=== PATIENT | male | born 1975 | race Two or more races ===

== ENCOUNTER 2017-06-26 17:43 | Inpatient (IN) | payer MEDICAID, OTHER ==
[~2017-06-26] VITALS: Ht 180.3 cm; Wt 71.3 kg
[2017-06-26] MEDS ORDERED: MEPERIDINE HCL (50 MG/ML) 1 ML VIAL IM ONE (21:30)
[2017-06-26] MEDS ORDERED: cefTRIAXone SOD 1,000 MG VL IM ONE (21:30)
[2017-06-26] MEDS ORDERED: ONDANSETRON HCL 4 MG/2 ML VIAL IM ONE (21:30)
[2017-06-26 22:16] LABS: Basophils # (auto) 0.1 uL; Basophils % (auto) 0.4 % (0.0-2.0); Eosinophils # (auto) 0 uL; Eosinophils % (auto) 0.2 % (0.0-7.0); Hematocrit 41.4 % (41.0-53.0); Hemoglobin 14.2 g/dL (13.5-17.5); Lymphocytes # (auto) 1.7 uL; Lymphocytes % (auto) 10.5 % (10.0-50.0); Mean Corpuscular Hemoglobin 31.3 pg (28.0-32.0); Mean Corpuscular Hgb Conc. 34.4 g/dL (32.0-36.0); Mean Corpuscular Volume 91.1 fL (80.0-100.0); Monocytes # (auto) 1.8 uL; Monocytes % (auto) 10.9 % (0.0-12.0); Neutrophils # (auto) 12.5 uL; Platelet Count (auto) 305 10^3/uL (140-450); Red Blood Cells 4.54 10^6/uL (4.5-5.90); Red Cell Distribution Width 13.5 % (11.8-14.3)
[2017-06-26] MEDS ORDERED: cefTRIAXone 1GM/10ml IVPUSH 10 ML IV ONE (22:26)
[2017-06-26 22:34] LABS: Albumin 2.9 g/dL (3.4-5.0); Bilirubin, Total 0.3 mg/dL (0.2-1.0); Potassium 3.9 mmol/L (3.5-5.1); Total Protein 8.1 g/dL (6.4-8.2)
[2017-06-27] MEDS ORDERED: TEMAZEPAM 15 MG CAP PO PRN (03:15)
[2017-06-27] MEDS ORDERED: VANCOMYCIN PER PHARMACY 0 MG IV SCH (03:15)
[2017-06-27] MEDS ORDERED: ACETAMINOPHEN 325 MG TAB PO PRN (03:15)
[2017-06-27] MEDS ORDERED: ONDANSETRON HCL 4 MG/2 ML VIAL IV PRN (03:15)
[2017-06-27] MEDS ORDERED: MORPHINE SULFATE 4 MG/ML SYR/VIAL IV PRN (03:15)
[2017-06-27] MEDS: HYDROcodone-ACET 5/325MG TAB PO PRN ×3 (04:34→14:08)
[2017-06-27 06:23] LABS: Urine Bacteria NONE SEEN /hpf (None Seen); Urine Blood Negative /uL (Negative); Urine Mucus FEW (None Seen); Urine Specific Gravity 1.029 (1.001-1.035); Urine WBC 2 /hpf (0 - 3)
[2017-06-27 06:43] LABS: Alcohol, Urine < 3.0 mg/dL (0-5); Amphetamine Screen, Urine NEGATIVE (NEGATIVE); Barbiturate Scree,Urine NEGATIVE (NEGATIVE); Benzodiazephine Screen, Urine NEGATIVE (NEGATIVE); Cannabinoid Screen, Urine NEGATIVE (NEGATIVE); Cocaine Screen, Urine NEGATIVE (NEGATIVE); Opiate Scree,Urine POSITIVE (NEGATIVE); Phencyclidine Screen, Urine NEGATIVE (NEGATIVE)
[2017-06-27] MEDS ORDERED: VANCOMYCIN 1GM/250ML 250 ML IV SCH (09:00)
[2017-06-27] MEDS: cefTRIAXone 1GM/10ml IVPUSH 10 ML IV SCH (09:12)
[2017-06-27 09:37] LABS: INR 1.05 (0.9-1.15); Partial Thromboplastin Time 29.2 sec (22.64-33.71); Prothrombin Time 11.5 sec (9.37-12.3)
[2017-06-27] MEDS: FAMOTIDINE 20 MG TAB PO SCH ×2 (09:46→22:04)
[2017-06-27] MEDS: ENOXAPARIN SOD 40 MG/0.4 ML SYRINGE SC SCH ×2 (09:46→12:02)
[2017-06-27] MEDS: KETOROLAC TROMETH 30 MG/ML 1ML VIAL IV PRN (11:57)
[2017-06-27 15:15] VITALS: BP 98/62
[2017-06-27] MEDS: CLINDAMYCIN 600MG IV 50 ML IV SCH ×2 (15:52→23:31)
[2017-06-27] MEDS: MORPHINE SULFATE 8mg/ml INJ SDV IV PRN ×2 (16:52→22:04)
[2017-06-27 16:54] VITALS: BP 98/62
[2017-06-27 22:00] VITALS: BP 112/65
[2017-06-28] MEDS: KETOROLAC TROMETH 30 MG/ML 1ML VIAL IV PRN (02:49)
[2017-06-28] MEDS: MORPHINE SULFATE 8mg/ml INJ SDV IV PRN ×4 (04:50→21:24)
[2017-06-28 05:00] VITALS: BP 108/68
[2017-06-28] MEDS: CLINDAMYCIN 600MG IV 50 ML IV SCH ×3 (07:37→23:44)
[2017-06-28 08:00] VITALS: BP 101/56
[2017-06-28 08:40] VITALS: BP 101/56
[2017-06-28 09:17] LABS: Basophils # (auto) 0 uL; Basophils % (auto) 0.5 % (0.0-2.0); Eosinophils # (auto) 0.1 uL; Hematocrit 43.1 % (41.0-53.0); Hemoglobin 14.5 g/dL (13.5-17.5); Lymphocytes # (auto) 2.1 uL; Lymphocytes % (auto) 21.4 % (10.0-50.0); Mean Corpuscular Hgb Conc. 33.6 g/dL (32.0-36.0); Mean Corpuscular Volume 92.4 fL (80.0-100.0); Monocytes # (auto) 0.9 uL; Monocytes % (auto) 9.5 % (0.0-12.0); Neutrophils # (auto) 6.6 uL; Neutrophils % (auto) 67.6 % (37.0-80.0); Platelet Count (auto) 329 10^3/uL (140-450); Red Blood Cells 4.66 10^6/uL (4.5-5.90); Red Cell Distribution Width 13.3 % (11.8-14.3); White Blood Cell 9.8 10^3/uL (4.4-10.8)
[2017-06-28 09:20] LABS: Albumin 2.4 g/dL (3.4-5.0); Calcium 8.7 mg/dL (8.5-10.1); Potassium 3.9 mmol/L (3.5-5.1)
[2017-06-28 09:30] LABS: BUN/Creatinine Ratio 19.7; Bilirubin, Total 0.2 mg/dL (0.2-1.0)
[2017-06-28] MEDS: ENOXAPARIN SOD 40 MG/0.4 ML SYRINGE SC SCH (10:53)
[2017-06-28] MEDS: cefTRIAXone 1GM/10ml IVPUSH 10 ML IV SCH (10:53)
[2017-06-28] MEDS: FAMOTIDINE 20 MG TAB PO SCH ×2 (10:53→21:24)
[2017-06-28 13:02] VITALS: BP 104/64
[2017-06-28 17:13] VITALS: BP 102/64
[2017-06-28] MEDS: HYDROcodone-ACET 5/325MG TAB PO PRN (18:36)
[2017-06-28 21:35] VITALS: BP 109/64
[2017-06-29] MEDS: MORPHINE SULFATE 8mg/ml INJ SDV IV PRN ×2 (03:16→07:26)
[2017-06-29 05:06] VITALS: BP 122/80
[2017-06-29 05:50] LABS: Basophils # (auto) 0 uL; Basophils % (auto) 0.3 % (0.0-2.0); Eosinophils # (auto) 0.1 uL; Eosinophils % (auto) 2.2 % (0.0-7.0); Hematocrit 37.6 % (41.0-53.0); Lymphocytes # (auto) 1.8 uL; Lymphocytes % (auto) 30.4 % (10.0-50.0); Mean Corpuscular Hemoglobin 31.3 pg (28.0-32.0); Mean Corpuscular Hgb Conc. 34.5 g/dL (32.0-36.0); Mean Corpuscular Volume 90.7 fL (80.0-100.0); Monocytes # (auto) 0.5 uL; Monocytes % (auto) 7.8 % (0.0-12.0); Neutrophils # (auto) 3.6 uL; Neutrophils % (auto) 59.3 % (37.0-80.0); Nucleated Red Blood Cells % 0.2 %; Platelet Count (auto) 361 10^3/uL (140-450); Red Blood Cells 4.14 10^6/uL (4.5-5.90); Red Cell Distribution Width 13.3 % (11.8-14.3); White Blood Cell 6.1 10^3/uL (4.4-10.8)
[2017-06-29 06:00] LABS: BUN/Creatinine Ratio 20.7; Calcium 8.4 mg/dL (8.5-10.1); Potassium 3.9 mmol/L (3.5-5.1)
[2017-06-29] MEDS: CLINDAMYCIN 600MG IV 50 ML IV SCH (07:26)
[2017-06-29] MEDS: cefTRIAXone 1GM/10ml IVPUSH 10 ML IV SCH (08:45)
[2017-06-29 08:52] VITALS: BP 118/80
[2017-06-29] MEDS: FAMOTIDINE 20 MG TAB PO SCH (10:00)
[2017-06-29] MEDS: ENOXAPARIN SOD 40 MG/0.4 ML SYRINGE SC SCH (10:00)
[2017-06-29 10:06] VITALS: BP 118/80
[2017-06-29] MEDS: HYDROcodone-ACET 5/325MG TAB PO PRN (11:25)
== END 2017-06-29 12:15 | disposition home or self-care (01) | DRG 720 ==
LOC: ER 18:02 → OVERFLOW 18:03 → CENTRAL 06-27 15:24
PROVIDERS: ADMIT Nurse Practitioner; ATTEND Internal Medicine
DX: A41.9 Sepsis, unspecified organism (principal); E88.09 Other disorders of plasma-protein metabolism, not elsewhere classified; L02.31 Cutaneous abscess of buttock; G47.00 Insomnia, unspecified; L03.317 Cellulitis of buttock; K21.9 Gastro-esophageal reflux disease without esophagitis; Z72.0 Tobacco use
CPT/HCPCS: 36415; 72192; 80048; 80053; 80307; 81001; 83615; 85025; 85610; 85730; 87040; 87205; 96372; 96374; J1885; J2270; J2405; J3490

== ENCOUNTER 2019-07-05 15:53 | Emergency (ER) | payer MEDICAID ==
[~2019-07-05] VITALS: Ht 180.3 cm; Wt 77.1 kg
[2019-07-05] MEDS ORDERED: cefTRIAXone W LIDOCAINE 1 GM IM IM ONE (16:45)
[2019-07-05] MEDS ORDERED: CLINDAMYCIN 600 MG/4 ML VL IM ONE (16:45)
[2019-07-05 17:04] VITALS: BP 106/70
[2019-07-05] MEDS ORDERED: CLINDAMYCIN HCL 150 MG CAP PO ONE (17:15)
== END 2019-07-05 18:00 | disposition home or self-care (01) ==
LOC: ER 15:54
DX: L03.116 Cellulitis of left lower limb (principal)
CPT/HCPCS: 73590; 96372; 99283; J0696

== ENCOUNTER 2019-07-07 22:48 | Inpatient (IN) | payer MEDICAID ==
[~2019-07-07] VITALS: Ht 180.3 cm; Wt 76.6 kg
[2019-07-08 00:08] LABS: Basophils # (auto) 0 10 ^3/uL (0-0.2); Basophils % (auto) 0.6 % (0.0-2.0); Eosinophils # (auto) 0.1 10 ^3/uL (0-0.8); Eosinophils % (auto) 1.1 % (0.0-7.0); Hematocrit 42.9 % (41.0-53.0); Hemoglobin 14.7 g/dL (13.5-17.5); Lymphocytes # (auto) 1.3 10 ^3/uL (0.4-5.4); Lymphocytes % (auto) 25.7 % (10.0-50.0); Mean Corpuscular Hemoglobin 32.2 pg (28.0-32.0); Mean Corpuscular Hgb Conc. 34.2 g/dL (32.0-36.0); Mean Corpuscular Volume 94.2 fL (80.0-100.0); Monocytes # (auto) 0.4 10 ^3/uL (0-1.3); Monocytes % (auto) 7.7 % (0.0-12.0); Neutrophils # (auto) 3.4 10 ^3/uL (1.6-8.6); Neutrophils % (auto) 64.9 % (37.0-80.0); Platelet Count (auto) 279 10^3/uL (140-450); Red Blood Cells 4.56 10^6/uL (4.5-5.90); Red Cell Distribution Width 13.3 % (11.8-14.3); White Blood Cell 5.2 10^3/uL (4.4-10.8)
[2019-07-08 00:28] LABS: Albumin 3.9 g/dL (3.4-5.0); BUN/Creatinine Ratio 18.4; Calcium 9.2 mg/dL (8.5-10.1)
[2019-07-08 00:31] LABS: Bilirubin, Total 0.4 mg/dL (0.2-1.0); Total Protein 8.3 g/dL (6.4-8.2)
[2019-07-08 02:38] LABS: Urine Bacteria FEW /hpf (None Seen); Urine Blood Negative /uL (Negative); Urine Hyaline Cast MANY /lpf (0 - 2); Urine Mucus FEW (None Seen); Urine Specific Gravity 1.033 (1.001-1.035); Urine Sperm PRESENT /hpf (None Seen); Urine WBC 1 /hpf (0 - 3)
[2019-07-08 02:49] LABS: Amphetamine Screen, Urine POSITIVE (NEGATIVE); Barbiturate Scree,Urine NEGATIVE (NEGATIVE); Benzodiazephine Screen, Urine NEGATIVE (NEGATIVE); Cannabinoid Screen, Urine NEGATIVE (NEGATIVE); Cocaine Screen, Urine NEGATIVE (NEGATIVE); Opiate Scree,Urine POSITIVE (NEGATIVE); Phencyclidine Screen, Urine NEGATIVE (NEGATIVE)
[2019-07-08] MEDS ORDERED: PIPERACILLIN-TAZOB 3.375GM 100 ML IV ONE (03:00)
[2019-07-08] MEDS ORDERED: VANCOMYCIN 1GM/250ML 250 ML IV ONE (04:30)
[2019-07-08] MEDS ORDERED: ACETAMINOPHEN 325 MG TAB PO PRN (06:45)
[2019-07-08] MEDS ORDERED: ONDANSETRON HCL 4 MG/2 ML VIAL IV PRN (06:45)
[2019-07-08] MEDS: NICOTINE 21MG/24 HR TOPICAL PATCH TD SCH ×2 (07:05→10:52)
[2019-07-08] MEDS: HYDROcodone-ACET 5/325MG TAB PO PRN ×3 (07:05→21:47)
[2019-07-08] MEDS: cefTRIAXone 1GM/50ML D5W 50 ML IV SCH (10:01)
--- NOTE | 2019-07-08 10:14 | NUR ---
[facility] admit from ER BAUDILIO ANNE admitted to [facility] after SBAR received. Patient oriented to Mady davalos RN, unit, room, bed, and unit policies regarding patient care and visiting hours. Patient weighed by bed scale and encouraged to call if they need something. All questions and concerns addressed, patient verbalized understanding. Instructed patient on POC, fall precautions and to call for assistance as needed. Patient verbalized understanding. Fall precautions in place with call light within reach.
[2019-07-08] MEDS: VANCOMYCIN 1GM/250ML 250 ML IV SCH ×2 (10:47→21:42)
[2019-07-08] MEDS: FAMOTIDINE 20 MG TAB PO SCH ×2 (10:47→21:47)
[2019-07-08] MEDS ORDERED: VANCOMYCIN PER PHARMACY 0 MG IV SCH (11:00)
[2019-07-08 12:00] VITALS: BP 110/66
[2019-07-08] MEDS ORDERED: CLINDAMYCIN 600MG IV 50 ML IV SCH (14:00)
--- NOTE | 2019-07-08 15:39 | NUR ---
was at bedside - Dr. Sotomayor
--- NOTE | 2019-07-08 16:13 | NUR ---
Paged Dr. Sotomayor RE: pain management Patient is reporting ordered pain medication is not making pain tolerable.
--- NOTE | 2019-07-08 16:16 | NUR ---
Updated Dr. Sotomayor RE: patient's pain management Md verbalized understanding. Order received and read back to verify.
[2019-07-08] MEDS ORDERED: CEPH500C PO (16:44)
[2019-07-08] MEDS ORDERED: CLIN300C8 PO (16:45)
--- NOTE | 2019-07-08 16:45 | NUR ---
Patient resting in bed with eyes closed respirations even and unlabored, no distress noted.
[2019-07-08 16:52] VITALS: BP 118/74
--- NOTE | 2019-07-08 17:36 | NUR ---
Patient's personal belongings sent to hospital safe Patient's two pocket knifes given to patient's lead warehouse associate, Josephine HANKINS. Copy of sheet placed in patient's hard chart.
[2019-07-08] MEDS ORDERED: THIAMINE HCL 100 MG TAB PO ONE (18:15)
--- NOTE | 2019-07-08 18:40 | NUR ---
Closing note Patient resting in bed with even and unlabored respirations, no distress noted. Fall precautions in place with call light within reach.
[2019-07-08] MEDS: HYDROcodone-ACET 7.5/325MG TAB PO PRN (18:45)
--- NOTE | 2019-07-08 19:00 | NUR ---
OPENING NOTE REPORT RECEIVED. PATIENT AWAKE IN BED, STILL COMPLAINING OF PAIN ON HIS CHEST, POC EXPLAINED TO PATIENT. CALL LIGHT WITH IN REACH, BED ON LOWEST POSITION. Addendum: 07/09/19 at 0622 by HARRISON BARFIELD RN DIFFERENT PATIENT
--- NOTE | 2019-07-08 19:00 | NUR ---
OPENING NOTE PATIENT SLEEP, EASY TO AROUSE, DENIES DISCOMFORT. POC EXPLAINED TO PATIENT. CALL LIGHT WITH IN REACH, BED ON LOWEST POSITION WILL CONT TO MONITOR.
--- NOTE | 2019-07-08 19:11 | NUR ---
Care endorsed to [facility].
[2019-07-08] MEDS: TEMAZEPAM 15 MG CAP PO PRN (21:46)
[2019-07-08 21:48] VITALS: BP 113/74
[2019-07-09 05:09] VITALS: BP 102/63
--- NOTE | 2019-07-09 06:22 | NUR ---
PATIENT REFUSED MORNING LABS
--- NOTE | 2019-07-09 07:30 | NUR ---
Opening Shift Note Assumed care of patient, awake and alert. No S/S of distress/SOB. Pain management options discussed with patient. Instructed on POC and to call for assist PRN, will continue to monitor for changes Q1hr and PRN.
[2019-07-09] MEDS: HYDROcodone-ACET 7.5/325MG TAB PO PRN ×4 (08:39→23:16)
[2019-07-09 09:00] VITALS: BP 94/57
[2019-07-09] MEDS: MULTIPLE VITAMINS W/ MINERALS TAB PO SCH (09:30)
[2019-07-09] MEDS: THIAMINE HCL 100 MG TAB PO SCH (09:30)
[2019-07-09] MEDS: FAMOTIDINE 20 MG TAB PO SCH ×2 (09:30→23:17)
[2019-07-09] MEDS: cefTRIAXone 1GM/50ML D5W 50 ML IV SCH (09:30)
[2019-07-09] MEDS: NICOTINE 21MG/24 HR TOPICAL PATCH TD SCH (09:31)
[2019-07-09 11:50] LABS: Basophils # (auto) 0 10 ^3/uL (0-0.2); Basophils % (auto) 0.3 % (0.0-2.0); Eosinophils # (auto) 0.1 10 ^3/uL (0-0.8); Eosinophils % (auto) 2.6 % (0.0-7.0); Hematocrit 43.3 % (41.0-53.0); Hemoglobin 14.4 g/dL (13.5-17.5); Lymphocytes # (auto) 1.2 10 ^3/uL (0.4-5.4); Mean Corpuscular Hemoglobin 31.4 pg (28.0-32.0); Mean Corpuscular Hgb Conc. 33.3 g/dL (32.0-36.0); Mean Corpuscular Volume 94.5 fL (80.0-100.0); Monocytes # (auto) 0.5 10 ^3/uL (0-1.3); Monocytes % (auto) 9.4 % (0.0-12.0); Neutrophils # (auto) 3.7 10 ^3/uL (1.6-8.6); Neutrophils % (auto) 66.7 % (37.0-80.0); Nucleated Red Blood Cells % 0.1 %; Platelet Count (auto) 225 10^3/uL (140-450); Red Blood Cells 4.58 10^6/uL (4.5-5.90); Red Cell Distribution Width 13.4 % (11.8-14.3); White Blood Cell 5.6 10^3/uL (4.4-10.8)
[2019-07-09 12:01] LABS: BUN/Creatinine Ratio 18.3; Calcium 8.9 mg/dL (8.5-10.1)
[2019-07-09 13:00] VITALS: BP 113/62
--- NOTE | 2019-07-09 13:01 | NUR ---
Midline Placement: Patient educated on need for midline placement. All risks and benefits explained and all questions and concerns addresses prior to procedure. 18g/10cm midline inserted via left brachial vein using Ultrasound. Sterile technique utilized. Blood return obtained from lumen and flushed easily with NS using proper technique. Midline secured with saline lock; biodisc and occlusive dressing applied. Primary RN notified. Midline lot #[id number]
--- NOTE | 2019-07-09 15:00 | NUR ---
patient requested to sign the AMA form to smoke. rules explained to the patient concerning going outside to smoke. patient acknowledged the policy and left the unit temporarily
[2019-07-09] MEDS: VANCOMYCIN 1GM/250ML 250 ML IV SCH (16:30)
[2019-07-09 16:31] VITALS: BP 121/72
--- NOTE | 2019-07-09 19:00 | NUR ---
PATIENT IN BED, COMFORTABLE, UNLABORED BREATHING, DENIES DISCOMFORT, STILL HAS PAIN ON HIS LEG WHEN WALKING. POC AND USE OF CALL LIGHT EXPLAINED TO PATIENT. BED ON LOWEST POSITION, CALL LIGHT WITH IN REACH.
[2019-07-09 22:00] VITALS: BP 114/72
[2019-07-09] MEDS: TEMAZEPAM 15 MG CAP PO PRN (23:16)
[2019-07-10] MEDS: VANCOMYCIN 1GM/250ML 250 ML IV SCH ×3 (02:17→20:41)
[2019-07-10 05:00] VITALS: BP 121/96
[2019-07-10] MEDS: HYDROcodone-ACET 7.5/325MG TAB PO PRN ×4 (05:33→20:40)
--- NOTE | 2019-07-10 07:30 | NUR ---
Opening Shift Note Assumed care of patient, awake and alert. No S/S of distress/SOB. Pain reported. Pain management options discussed with the patient. Instructed on POC and to call for assist PRN, will continue to monitor for changes Q1hr and PRN.
[2019-07-10 08:00] VITALS: BP 126/70
[2019-07-10 08:30] VITALS: BP 126/70
[2019-07-10] MEDS: NICOTINE 21MG/24 HR TOPICAL PATCH TD SCH (10:00)
[2019-07-10] MEDS: THIAMINE HCL 100 MG TAB PO SCH (10:21)
[2019-07-10] MEDS: cefTRIAXone 1GM/50ML D5W 50 ML IV SCH (10:21)
[2019-07-10] MEDS: MULTIPLE VITAMINS W/ MINERALS TAB PO SCH (10:21)
[2019-07-10] MEDS: FAMOTIDINE 20 MG TAB PO SCH ×2 (10:21→20:40)
[2019-07-10 13:04] VITALS: BP 124/83
[2019-07-10] MEDS ORDERED: chlordiazePOXIDE HCL 25 MG CAP PO PRN (15:00)
[2019-07-10 17:39] VITALS: BP 142/92
--- NOTE | 2019-07-10 19:00 | NUR ---
OPENING NOTE PATIENT RESTING, UNLABORED BREATHING. POC EXPLAINED TO PATIENT, CALL LIGHT WITH IN REACH, BED ON LOWEST POSITION.
[2019-07-10] MEDS: TEMAZEPAM 15 MG CAP PO PRN (20:40)
--- NOTE | 2019-07-10 21:00 | NUR ---
PAIN 11/24, MEDICATION GIVEN
[2019-07-10 22:00] VITALS: BP 120/85
[2019-07-11] MEDS: HYDROcodone-ACET 7.5/325MG TAB PO PRN ×4 (01:24→20:46)
[2019-07-11 05:00] VITALS: BP 120/77
[2019-07-11 05:30] LABS: Basophils # (auto) 0 10 ^3/uL (0-0.2); Basophils % (auto) 0.6 % (0.0-2.0); Eosinophils # (auto) 0.2 10 ^3/uL (0-0.8); Eosinophils % (auto) 2.2 % (0.0-7.0); Hemoglobin 14.8 g/dL (13.5-17.5); Mean Corpuscular Hemoglobin 31.5 pg (28.0-32.0); Mean Corpuscular Hgb Conc. 33.6 g/dL (32.0-36.0); Mean Corpuscular Volume 93.8 fL (80.0-100.0); Monocytes # (auto) 0.6 10 ^3/uL (0-1.3); Monocytes % (auto) 7.6 % (0.0-12.0); Neutrophils # (auto) 4.9 10 ^3/uL (1.6-8.6); Neutrophils % (auto) 63.6 % (37.0-80.0); Nucleated Red Blood Cells % 0.1 %; Platelet Count (auto) 256 10^3/uL (140-450); Red Blood Cells 4.69 10^6/uL (4.5-5.90); Red Cell Distribution Width 13.1 % (11.8-14.3); White Blood Cell 7.8 10^3/uL (4.4-10.8)
[2019-07-11 05:45] LABS: Potassium 3.3 mmol/L (3.5-5.1)
[2019-07-11 05:50] LABS: BUN/Creatinine Ratio 13.6; Calcium 8.5 mg/dL (8.5-10.1)
--- NOTE | 2019-07-11 06:53 | NUR ---
PATIENT RESTING, UNLABORED BREATHING.
--- NOTE | 2019-07-11 07:30 | NUR ---
Opening Shift Note Assumed care of patient, awake and alert. No S/S of distress/SOB. Pain reported to left leg. Pain management options discussed with patient. Instructed on POC and to call for assist PRN, will continue to monitor for changes Q1hr and PRN.
[2019-07-11 08:00] VITALS: BP 127/80
[2019-07-11] MEDS: VANCOMYCIN 1GM/250ML 250 ML IV SCH ×3 (08:14→20:46)
[2019-07-11 09:00] VITALS: BP 127/80
[2019-07-11] MEDS: cefTRIAXone 1GM/50ML D5W 50 ML IV SCH (09:18)
[2019-07-11] MEDS: FAMOTIDINE 20 MG TAB PO SCH ×2 (09:19→20:46)
[2019-07-11] MEDS: NICOTINE 21MG/24 HR TOPICAL PATCH TD SCH (09:19)
[2019-07-11] MEDS: THIAMINE HCL 100 MG TAB PO SCH (09:19)
[2019-07-11] MEDS: MULTIPLE VITAMINS W/ MINERALS TAB PO SCH (09:19)
[2019-07-11 12:59] VITALS: BP 122/77
[2019-07-11] MEDS ORDERED: POTASSIUM EFFERVESENT TAB 25 MEQ PO ONE (13:15)
[2019-07-11 17:25] VITALS: BP 123/76
--- NOTE | 2019-07-11 19:00 | NUR ---
OPENING NOTE PATIENT IS WALKING AROUND, DENIES DISCOMFORT, NO SOB NOTED. POC EXPLAINED TO PATIENT. CALL LIGHT WITH IN REACH, BED ON LOWEST POSITION FOR SAFETY.
[2019-07-11] MEDS: TEMAZEPAM 15 MG CAP PO PRN (20:46)
[2019-07-11 22:00] VITALS: BP 106/72
--- NOTE | 2019-07-12 00:30 | NUR ---
PATIENT RESTING, NO SIGNS OF DISTRESS.
[2019-07-12] MEDS: HYDROcodone-ACET 7.5/325MG TAB PO PRN ×2 (01:41→06:41)
[2019-07-12 06:33] LABS: Basophils # (auto) 0.1 10 ^3/uL (0-0.2); Eosinophils # (auto) 0.2 10 ^3/uL (0-0.8); Eosinophils % (auto) 2.9 % (0.0-7.0); Hematocrit 42.3 % (41.0-53.0); Hemoglobin 14.5 g/dL (13.5-17.5); Lymphocytes % (auto) 28.6 % (10.0-50.0); Mean Corpuscular Hemoglobin 32.2 pg (28.0-32.0); Mean Corpuscular Hgb Conc. 34.2 g/dL (32.0-36.0); Mean Corpuscular Volume 94.2 fL (80.0-100.0); Monocytes # (auto) 0.6 10 ^3/uL (0-1.3); Monocytes % (auto) 8.3 % (0.0-12.0); Neutrophils # (auto) 4.2 10 ^3/uL (1.6-8.6); Neutrophils % (auto) 59.2 % (37.0-80.0); Nucleated Red Blood Cells % 0.1 %; Platelet Count (auto) 234 10^3/uL (140-450); Red Blood Cells 4.49 10^6/uL (4.5-5.90); Red Cell Distribution Width 13.2 % (11.8-14.3)
[2019-07-12 06:50] LABS: BUN/Creatinine Ratio 17.9; Calcium 8.7 mg/dL (8.5-10.1); Potassium 3.8 mmol/L (3.5-5.1)
--- NOTE | 2019-07-12 07:23 | NUR ---
Opening Shift Note Assumed care of patient, awake and alert. No S/S of distress/SOB or pain. Instructed on POC and to call for assist PRN, will continue to monitor for changes Q1hr and PRN. Bed is set in lowest locked position with side rails up x 2 for safety and call light is within reach.
--- NOTE | 2019-07-12 07:48 | NUR ---
Spoke to environmental laboratory technician in regards to vanco trough Per environmental laboratory technician, trough level is in process.
[2019-07-12 08:01] VITALS: BP 117/67
--- NOTE | 2019-07-12 08:08 | NUR ---
Vanco trough level Lab value pending at this time
[2019-07-12] MEDS: VANCOMYCIN 1GM/250ML 250 ML IV SCH ×2 (08:51→16:00)
[2019-07-12 09:00] VITALS: BP 117/67
[2019-07-12] MEDS: NICOTINE 21MG/24 HR TOPICAL PATCH TD SCH (10:00)
[2019-07-12] MEDS: THIAMINE HCL 100 MG TAB PO SCH (10:09)
[2019-07-12] MEDS: FAMOTIDINE 20 MG TAB PO SCH (10:09)
[2019-07-12] MEDS: cefTRIAXone 1GM/50ML D5W 50 ML IV SCH (10:09)
[2019-07-12] MEDS: MULTIPLE VITAMINS W/ MINERALS TAB PO SCH (10:09)
--- NOTE | 2019-07-12 12:07 | NUR ---
MD rounding at bedside Dr. Sotomayor, discussed discharge planning with patient. Patient verbalized understanding.
[2019-07-12 13:30] VITALS: BP 109/66
[2019-07-12 14:23] VITALS: BP 109/66
[2019-07-12 16:36] VITALS: BP 117/65
--- NOTE | 2019-07-12 16:40 | NUR ---
Discharge instructions given as ordered. Encourage to follow up with PMD as instructed, all information given to patient, patient verbalized understanding to obtain doctor's appointment following discharge. All questions and concerns addressed. Patient verbalized understanding. IV removed with catheter intact, pressure dressing applied. Patient taken to vehicle via wheelchair with all personal belongings, accompanied by staff. No distress noted at time of departure.
== END 2019-07-12 16:42 | disposition home or self-care (01) | DRG 383 ==
LOC: ER 22:49 → OVERFLOW 22:50 → WEST WING 07-08 10:39
PROVIDERS: ADMIT Nurse Practitioner; ATTEND Internal Medicine
DX: L03.116 Cellulitis of left lower limb (principal); E87.6 Hypokalemia; Z91.19 Patient's noncompliance with other medical treatment and regimen; F10.239 Alcohol dependence with withdrawal, unspecified; F10.229 Alcohol dependence with intoxication, unspecified; F11.90 Opioid use, unspecified, uncomplicated; Z72.0 Tobacco use; Z71.51 Drug abuse counseling and surveillance of drug abuser
CPT/HCPCS: 36415; 71045; 73700; 80048; 80053; 80202; 80307; 81001; 83605; 85025; 87040; 87081; 96365; 96367; 96375; G0378; J0696; J2543

== ENCOUNTER 2020-03-30 06:27 | Emergency (ER) | payer MEDICAID ==
[~2020-03-30] VITALS: Ht 180.3 cm; Wt 77.1 kg
[~2020-03-30 06:27] MED LIST: CEPH500C PO; CLIN300C8 PO
[2020-03-30] MEDS ORDERED: cefTRIAXone W LIDOCAINE 1 GM IM IM ONE (07:00)
[2020-03-30 07:32] VITALS: BP 114/80
[2020-03-30] MEDS ORDERED: NEOMYCIN-BACITRACIN-POLYM UNITDOSE PKG TOP OINT TOP ONE (08:15)
[2020-03-30] MEDS ORDERED: cefTRIAXone SOD 1,000 MG VL IM ONE (08:15)
[2020-03-30] MEDS ORDERED: IBUPROFEN 800 MG TAB PO ONE (08:30)
== END 2020-03-30 08:57 | disposition home or self-care (01) ==
LOC: ER 06:27
DX: S61.002A Unspecified open wound of left thumb without damage to nail, initial encounter (principal); W26.0XXA Contact with knife, initial encounter; Y93.89 Activity, other specified; Y92.89 Other specified places as the place of occurrence of the external cause; Y99.8 Other external cause status
CPT/HCPCS: 73130; 96372; 99283; J0696